=== PATIENT | female | born 1960 | race Caucasian/White ===

== ENCOUNTER → 2016-08-20 | Outpatient (CLI) | payer BC ==
[~2016-08-20] MED LIST: ACET-1138 PO; ALPR1TAB3 PO; ASPEC81 PO; ONDA8TAB6 PO; OXYSR10 PO; RXC5 PO; SYN100 PO; TRAZ1TAB5 PO; VENL75TA4 PO
--- NOTE | 2016-08-20 14:20 | DIAGNOSTIC IMAGING REPORT ---
Ultrasound left thigh LEFT EXTREMITY NONVASCULAR LIMITED CLINICAL HISTORY: HX LEFT HIP REPLACEMENT postoperative pain. Edema. TECHNIQUE: Real-time ultrasound COMPARISON STUDY: None FINDINGS: Linear fluid pocket lateral aspect proximal 5 measuring approximate 6 x 1 x 1.2 cm. There is mild degree of surrounding edematous soft tissue. This finding is felt to be most likely secondary to a postprocedural hematoma and/or seroma, and less likely a focal collection or abscess. IMPRESSION: Small linear fluid pocket lateral to the left hip within the proximal left thigh. 2. This appears to represent a postoperative hematoma and/or seroma 3. Mild degree of surrounding soft tissue edema possibly related to a postprocedural cellulitis. 4. Abscess is considered less likely Electronically signed by: Mitch Baird M.D. 08/20/2016 2:19 PM Dictated Date/Time: 08/20/2016 2:16 PM
== END | disposition home or self-care (01) ==
LOC: C.ULTR 13:07
PROVIDERS: ATTEND Orthopaedic Surgery Sports Medicine
DX: Z96.642 Presence of left artificial hip joint (principal)

== ENCOUNTER → 2016-09-29 | Outpatient (CLI) | payer BC | END | disposition home or self-care (01) | LOC: C.LAB 14:21 | PROVIDERS: ATTEND Orthopaedic Surgery Sports Medicine | DX: M67.40 Ganglion, unspecified site (principal) ==

== ENCOUNTER → 2016-12-08 | Outpatient (CLI) | payer BC ==
[~2016-12-08] MED LIST changes: -ONDA8TAB6 PO; +TRAZ-120 PO; -TRAZ1TAB5 PO
[2016-12-08 18:32] LABS: THYROID STIMULATING HORMONE 0.234 uIu/ml (0.300-4.500)
== END | disposition home or self-care (01) ==
LOC: C.LABMFLN 13:30
PROVIDERS: ATTEND Internal Medicine
DX: E03.9 Hypothyroidism, unspecified (principal)

== ENCOUNTER → 2017-01-29 | Outpatient (CLI) | payer BC ==
[~2017-01-29] MED LIST changes: -TRAZ-120 PO; +TRAZ1TAB5 PO
[2017-01-29 18:09] LABS: EOS % 0.4 %; HEMATOCRIT 35.3 % (37-47); IG% 0.4 %; LYMPH % 29.6 %; LYMPH ABS # 2.23 K/uL (1.2-3.4); MEAN CELL VOLUME 68.8 fL (80-100); MEAN CORPUSCULAR HEMOGLOBIN 21.1 pg (25-34); MEAN CORPUSCULAR HGB CONC 30.6 g/dl (32-36); NEUT % 60.6 %; PLATELET COUNT 415 K/uL (130-400); RED BLOOD COUNT 5.13 M/uL (4.2-5.4); WHITE BLOOD COUNT 7.53 K/uL (4.8-10.8)
[2017-01-29 18:33] LABS: COMPLETE YES; MICROCYTOSIS PRESENT
== END | disposition home or self-care (01) ==
LOC: C.LABMFLN 12:30
PROVIDERS: ATTEND Internal Medicine
DX: D64.9 Anemia, unspecified (principal)

== ENCOUNTER → 2017-04-09 | Outpatient (CLI) | payer BC | END | disposition home or self-care (01) | LOC: C.PAPS 14:59 | PROVIDERS: ATTEND Obstetrics & Gynecology | DX: Z01.419 Encounter for gynecological examination (general) (routine) without abnormal findings (principal) ==

== ENCOUNTER → 2017-04-09 | Outpatient (CLI) | payer BC ==
--- NOTE | 2017-04-09 15:47 | MAMMOGRAPHY REPORT ---
BILATERAL DIGITAL SCREENING MAMMOGRAM TOMOSYNTHESIS WITH CAD: 04/09/2017 CLINICAL HISTORY: Routine screening. Patient has no complaints. TECHNIQUE: Breast tomosynthesis in addition to standard 2D mammography was performed. Current study was also evaluated with a Computer Aided Detection (CAD) system. COMPARISON: Comparison is made to exams dated: 01/17/2016 mammogram, 10/12/2014 mammogram, 07/28/2013 ma mmogram, 07/21/2012 mammogram - [facility], 07/03/2011 mammogram, and 06/05/2011 mamm ogram - [facility]. BREAST COMPOSITION: The tissue of both breasts is almost entirely fatty. FINDINGS: No suspicious masses, calcifications, or areas of architectural distortion are noted in ei ther breast. There has been no significant interval change compared to prior exams. IMPRESSION: ACR BI-RADS CATEGORY 1: NEGATIVE There is no mammographic evidence of malignancy. A 1 year screening mammogram is recommended. The pa tient will receive written notification of the results. Approximately 10% of breast cancers are not detected with mammography. A negative mammographic report should not delay biopsy if a clinically suggestive mass is present. Evonne Parkinson M.D. ah/:04/09/2017 13:35:02 Physical Therapist: Lashonda CAMPOS(R)(M), [facility] letter sent: Normal 1/2 BI-RADS Code: ACR BI-RADS Category 1: Negative
== END | disposition home or self-care (01) ==
LOC: C.MAMM 11:11
PROVIDERS: ATTEND Obstetrics & Gynecology
DX: Z12.31 Encounter for screening mammogram for malignant neoplasm of breast (principal)